=== PATIENT | male | born 1935 | race Caucasian/White ===

== ENCOUNTER 2017-08-03 09:55 | Day surgery (SDC) | payer OTHER ==
[2017-08-03] MEDS ORDERED: NS 500 ML IV ONE (10:02)
[2017-08-03] MEDS ORDERED: fentaNYL 100 MCG/2 ML INJ IVP ONE (10:02)
[2017-08-03] MEDS ORDERED: MIDAZOLAM 2 MG/2 ML VIAL IVP ONE (10:02)
[2017-08-03] MEDS ORDERED: BENZOCAINE UNIT DOSE SPRAY HURRICAINE MM ONE (10:02)
[2017-08-03] MEDS ORDERED: ATROPINE SULFATE 1 MG/10 ML SYR IVP ONE (10:02)
--- NOTE | 2017-08-03 10:15 | CPEKG ---
Heart Rate: 99 RR Interval: 606 P-R Interval: 220 QRSD Interval: 86 QT Interval: 340 QTC Interval: 437 P [place]: 38 QRS [place]: 77 T Wave [place]: 249 EKG Severity - ABNORMAL ECG - EKG Impression: Atrial flutter Electronically Signed By: John He 03-Aug-2017 16:15:12
[2017-08-03 10:33] LABS: INR 1.36 (0.83-1.16); PROTIME(PATIENT) 16.9 SEC (12.0-15.0)
[2017-08-03 10:34] LABS: APTT 60.3 SEC (23.0-38.0)
[2017-08-03 10:57] LABS: ANION GAP 11 mEq/L (8-16); CALCIUM 8.7 mg/dL (8.5-10.4); CARBON DIOXIDE 27 mEq/l (22-31); CHLORIDE 103 mEq/L (97-110); CREATININE 1.1 mg/dL (0.7-1.3); GLOMERULAR FILTRATION RATE > 60; GLUCOSE 103 mg/dL (70-100); SODIUM 141 mEq/L (134-144)
[2017-08-03] MEDS ORDERED: ATROPINE SULFATE 1 MG/10 ML SYR ONE (12:17)
--- NOTE | 2017-08-03 12:22 | PDANEPAE ---
ANE History of Present Illness alisa/cv ANE Past Medical History - Cardiovascular History Hx Hypertension: Yes Hx Arrhythmias: No Hx Chest Pain: No Hx Coronary Artery / Peripheral Vascular Disease: Yes Hx CHF / Valvular Disease: Yes Hx Palpitations: No - Pulmonary History Hx COPD: No Hx Asthma/Reactive Airway Disease: No Hx Recent Upper Respiratory Infection: No Hx Oxygen in Use at Home: No Hx Sleep Apnea: No - Neurologic History Hx Cerebrovascular Accident: No - Endocrine History Hx Diabetes: No - Renal History Hx Renal Disorders: No - Liver History Hx Hepatic Disorders: No - GI History Gastrointestinal History Comment: esophageal diverticula repaired approx 10years ANE Review of Systems Review of Systems: - Exercise capacity Exercise capacity: unable to assess ANE Patient History - Allergies Allergies/Adverse Reactions: No Known Allergies Allergy (Unverified 03/06/10 18:31) - Anes Hx Anes Hx: no prior problems - Smoking Hx Smoking Status: Never smoked ANE Labs/Vital Signs - Labs Result Diagrams: 08/03/17 10:15 - Vital Signs Height: 177.8 cm Weight: 78.925 kg ANE Physical Exam - Airway Mallampati Score: Class 2 Mouth exam: normal dental/mouth exam - Pulmonary Pulmonary: no respiratory distress - Cardiovascular Cardiovascular: regular rate and rhythym - ASA Status ASA Status: III ANE Anesthesia Plan Anesthesia Plan: GA with mask Total IV Anesthesia: Yes
[2017-08-03] MEDS ORDERED: PROPOFOL 200 MG/20 ML VIAL ONE (12:23)
[2017-08-03] MEDS ORDERED: LIDOCAINE 2% 5 ML SDV ONE (12:23)
--- NOTE | 2017-08-03 12:31 | PDHPUP ---
History & Physical Update H&P update statement: This history and physical update is based on an assessment of the patient which was completed after admission or registration (within 24 hours), but prior to the surgery/procedure. H&P update: H&P reviewed & patient examined, no change in patient's condition since H&P completed
--- NOTE | 2017-08-03 12:47 | POSTANESTH ---
Post Anesthetic Evaluation Cardiovascular Status: Normal, Stable Respiratory Status: Normal, Stable Level of Consciousness/Mental Status: Can Participate in Eval Pain Control: Adequate, Prn Tx Ordered Nausea/Vomiting Control: Adequate, Prn Tx Ordered Complications Possibly Related to Anesthesia: None Noted
--- NOTE | 2017-08-03 12:53 | CPEKG ---
Heart Rate: 69 RR Interval: 870 P-R Interval: 163 QRSD Interval: 84 QT Interval: 388 QTC Interval: 416 P [place]: -14 QRS [place]: 59 T Wave [place]: 174 EKG Severity - ABNORMAL ECG - EKG Impression: A paced V sensed rhythm. Inferolateral T wave flattening Electronically Signed By: John He 03-Aug-2017 16:14:58
== END 2017-08-03 14:20 | disposition home or self-care (01) ==
LOC: FCATH 09:55
PROVIDERS: ATTEND Internal Medicine Cardiovascular Disease
PROC: B245ZZ4 Ultrasonography of Left Heart, Transesophageal (ICD-10-PCS; principal; 2017-08-03)
PROC: 5A2204Z Restoration of Cardiac Rhythm, Single (ICD-10-PCS; principal; 2017-08-03)
DX: I48.91 Unspecified atrial fibrillation (principal); I10 Essential (primary) hypertension; I25.10 Atherosclerotic heart disease of native coronary artery without angina pectoris; E03.9 Hypothyroidism, unspecified; Z95.1 Presence of aortocoronary bypass graft; Z95.2 Presence of prosthetic heart valve
CPT/HCPCS: J0461; J2704

== ENCOUNTER 2017-10-22 03:13 | Emergency (ER) | payer OTHER ==
[2017-10-22 03:20] VITALS: RESP 18
--- NOTE | 2017-10-22 03:31 | CPEKG ---
Heart Rate: 112 RR Interval: 536 QRSD Interval: 154 QT Interval: 408 QTC Interval: 557 P [place]: 0 QRS [place]: -50 T Wave [place]: 117 EKG Severity - ABNORMAL ECG - EKG Impression: ATRIAL-VENTRICULAR DUAL-PACED COMPLEXES EKG Impression: IVCD, CONSIDER ATYPICAL RBBB EKG Impression: LVH WITH IVCD AND SECONDARY REPOL ABNRM Electronically Signed By: Suzy Bowman 22-Oct-2017 08:23:14
[2017-10-22 04:11] LABS: PLATELET COUNT 147 10^3/uL (150-400)
--- NOTE | 2017-10-22 05:33 | EDPHY ---
H & P Stated Complaint: heart flutter, lightheaded Time Seen by Provider: 10/22/17 04:03 HPI/ROS: HPI The patient presents brought in by his for dizziness and a strain sensation in his chest. When he went to lay in bed last night at approximately 11:30 p.m., he had a vibrating sensation in his right chest which was intermittent, occurred every 4-5 seconds and lasted for about 1 sec. It was very mild in nature though was associated with lightheadedness. This is been constant. He has never had this before. He checked his blood pressure and it was elevated higher than it usually is. He does not have any chest pain, shortness of breath, nausea or vomiting. He questions if this is his pacemaker causing this sensation. REVIEW OF SYSTEMS Constitutional: No fever, no chills. Eyes: No discharge. ENT: No sore throat. Cardiovascular: No chest pain, no palpitations. Respiratory: No cough, no shortness of breath. Gastrointestinal: No abdominal pain, no vomiting. Genitourinary: No hematuria. Musculoskeletal: No back pain. Skin: No rashes. Neurological: No headache. 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 Murillo of [facility] Hx: Lives at home with his PHYSICAL General Appearance: Alert, no distress Eyes: Pupils equal and round no pallor or injection ENT, Mouth: Mucous membranes moist Respiratory: There are no retractions, lungs are clear to auscultation Cardiovascular: Regular rate and rhythm Gastrointestinal: Abdomen is soft and non-tender, no masses, bowel sounds normal Neurological: A&O, moves all extremities Skin: Warm and dry, no rashes Musculoskeletal: Neck is supple non tender Extremities: symmetrical, full range of motion Psychiatric: Patient is oriented X 3, there is no agitation Source: Patient Exam Limitations: No limitations - Personal History Current Tetanus Diphtheria and Acellular Pertussis (TDAP): Yes - Medical/Surgical History Hx Asthma: No Hx Chronic Respiratory Disease: No Hx Diabetes: No Hx Cardiac Disease: Yes Hx Renal Disease: No Hx Cirrhosis: No Hx Alcoholism: No Hx HIV/AIDS: No Hx Splenectomy or Spleen Trauma: No Other PMH: pacemaker, heart valve replacement, cardioversion - Social History Smoking Status: Never smoked Constitutional: Initial Vital Signs Temperature (C) 36.4 C 10/22/17 03:16 Heart Rate 76 10/22/17 03:16 Respiratory Rate 18 10/22/17 03:16 Blood Pressure 168/85 H 10/22/17 03:16 O2 Sat (%) 95 10/22/17 03:16 O2 Delivery Mode Room Air Allergies/Adverse Reactions: No Known Allergies Allergy (Unverified 03/06/10 18:31) Home Medications: Medication Instructions Recorded Aspirin 10/22/17 Diltiazem 10/22/17 Lipitor 10/22/17 Pradaxa 10/22/17 Medical Decision Making - Diagnostics EKG Interpretation: EKG: Complete interpretation has been separately recorded in the [employer] archive. Summary impression: Paced rhythm with occasional PVCs Imaging Results: Chest x-ray two view shows pacer wires in place, no cardiomegaly, no infiltrate , no effusion, interpreted by me, radiology interpretation is pending. Imaging: I viewed and interpreted images myself Differential Diagnosis: This is an 82-year-old man with past medical history of CAD, aortic stenosis status post TAVR, pacemaker placed for bradycardic episodes, atrial flutter status post cardioversion, presenting from home for dizziness earlier in the evening now mostly resolved. This was associated with a vague intermittent vibration of his right chest. On exam vital signs are normal. EKG was obtained and shows pacer spikes with frequent what appear to be PVCs. This was his rhythm initially on our cardiac monitoring as well, however for the last hour he is been in a paced rhythm at 70. Labs were checked and were all unremarkable including a troponin. I have consulted with the thermo cementing folder operator customer care voice consultant Dr. Arreola. Given that the patient is feeling well currently, we agree he can go home. His pacer is clearly working properly currently. We have advised the patient to follow up in the Cardiology clinic in the next few days. He is in agreement with this plan and is happy to go home. - Data Points Laboratory Results: Laboratory Results 10/22/17 03:40 10/22/17 03:40 Departure - Departure Disposition: Home, Routine, Self-Care Clinical Impression: Dizziness, Palpitations Condition: Good Instructions: Dizziness (ED) Additional Instructions: It appears that your pacer is working normally. I would like you to follow up with your thermo cementing folder operator in the next few days. Please call to make an appointment. Please return to the emergency department if your worse in any way. Referrals: Constantino Briscoe MD [Primary Care Provider] - As per Instructions Maxwell Murillo MD [Medical Doctor] - As per Instructions
[2017-10-22 05:39] VITALS: BP 140/77; PULSE 71; TEMP 97.9; O2SAT 95
== END 2017-10-22 05:40 | disposition home or self-care (01) ==
DX: R42 Dizziness and giddiness (principal); R00.2 Palpitations; I25.10 Atherosclerotic heart disease of native coronary artery without angina pectoris; Z95.0 Presence of cardiac pacemaker